=== PATIENT | male | born 1945 | race Caucasian/White ===

== ENCOUNTER 2019-10-24 13:40 | Emergency (ER) | payer MEDICARE, SELFPAY ==
--- NOTE | ~2019-10-24 | XR_ITS ---
EXAMINATION: XR finger 2nd RT min 2V DATE: 10/24/2019 16:30 INDICATION: Right hand second digit injury. TECHNIQUE: 4 views of right hand second digit were obtained. COMPARISON: None. FINDINGS: There is a comminuted fracture of tuft of second distal phalanx. There is mild osteoarthrit is of second distal interphalangeal joint. There is a soft tissue laceration of the distal second dig it. IMPRESSION: 1. Open comminuted fracture of tuft of second distal phalanx. Reviewed, dictated and finalized at location A.
[2019-10-24 14:27] VITALS: BP 155/84; PULSE 71; RESP 20; TEMP 36.6; O2SAT 100
--- NOTE | 2019-10-24 16:00 | ED.WOUNDLAC ---
HPI - Wound/Laceration General Chief Complaint: Wound/Laceration Stated Complaint: laceration finger Time Seen by Provider: 10/24/19 15:26 Source: patient Mode of arrival: ambulatory Limitations: no limitations History of Present Illness HPI narrative: This is a 74-year-old male that presents the emergency department for laceration to right index finger sustained just prior to arrival. Reports he sustained a laceration by a table saw. Reports he is up-to-date on tetanus. Denies decreased range of motion or numbness. Related Data Allergies Allergy/AdvReac Type Severity Reaction Status Date / Time No Known Allergies Allergy Verified 10/24/19 15:13 Review of Systems Review of Systems: Narrative: CONSTITUTIONAL: Denies fever SKIN: Reports laceration MUSCULOSKELETAL: Denies joint pain, or myalgia. NEUROLOGIC: Denies numbness All systems reviewed & are unremarkable except as noted in HPI and below PMFSH Past Medical History Medical History (Updated 10/24/19 @ 18:56 by Rea French PA-C) History of hypertension History of restless legs syndrome Exam Narrative: Exam Narrative: GENERAL: Well-appearing, well-nourished, and in no acute distress. HEAD: Normocephalic, atraumatic. EYES: EOMI. EXTREMITIES: Normal range of motion. No edema. Right second finger with complex/regular laceration of the distal phalanx that involves the nail. Normal sensation SKIN: Warm, dry, no rash. NEURO: No focal deficits. Alert and oriented x3. PSYCH: Normal mood and affect Course Consultations Consultation #1: Spoke with Dr. Hadley about patient and work-up who will follow-up in clinic Date: 10/24/19 Time: 18:52 Vital Signs Vital signs: Vital Signs Temperature 97.8 F 10/24/19 14:27 Pulse Rate 71 10/24/19 14:27 Respiratory Rate 20 10/24/19 14:27 Blood Pressure 155/84 H 10/24/19 14:27 Pulse Oximetry 100 10/24/19 14:27 Temperature 97.8 F 10/24/19 14:27 Pulse Rate 75 10/24/19 17:15 Respiratory Rate 16 10/24/19 17:15 Blood Pressure 138/75 10/24/19 17:15 Pulse Oximetry 98 10/24/19 17:15 Procedures Laceration Laceration 1: Date: 10/24/19 Time: 18:52 Site: hand Side (If applicable): right Size (cm): 2 Description: irregular Depth: [id number] (open fracture) Local Anesthetic: lidocaine 1% Amount of anesthesia used (mL): 4 Pre-repair: irrigated extensively ====== Skin Level ====== Skin layer closed with: nylon Size (cm): 5-0 Number of sutures: 2 Technique: simple, interrupted and horizontal mattress ====== Subcutaneous Layer ====== ====== Muscle Layer ====== ====== Tendon Layer ====== MDM - Wound/Laceration MDM Narrative Medical decision making narrative: Patient presents to the emergency department for complicated laceration of the right second finger. X-ray shows a comminuted fracture of the tuft, which makes this an open fracture. Patient is up-to-date on tetanus. Given dose of IM Ancef in the ED. Wound was thoroughly irrigated. I did approximate some of the tissue that I was able to with sutures. Patient was bandaged. He will follow-up with Dr. Hadley in clinic. He was given warnings to return to the ER Imaging Data Radiologist's impression: ITS Impressions Finger X-Ray 10/24/19 16:30 IMPRESSION: 1. Open comminuted fracture of tuft of second distal phalanx. Critical Care Time Critical Care Time Critical Care Time: No Discharge Plan Discharge Clinical Impression: Open fracture of distal phalanx of right index finger Qualifiers: Encounter type: initial encounter Fracture alignment: displaced Qualified Code(s): S62.630B - Displaced fracture of distal phalanx of right index finger, initial encounter for open fracture Patient Disposition: Home, Self-Care Condition: Stable Instructions: Antibiotic Form, Care For Your Stitches (ED), Lac
--- NOTE | 2019-10-24 16:20 | PC.NURSE ---
LACERATION TRAY SET UP AT BEDSIDE FOR FRANCISCO PADILLA.
[2019-10-24] MEDS: ceFAZolin SODIUM 1 GM VIAL IM (16:55)
[2019-10-24 17:15] VITALS: BP 138/75; PULSE 75; RESP 16; O2SAT 98
[2019-10-24 19:09] VITALS: BP 138/75; PULSE 75; RESP 18; O2SAT 100
== END 2019-10-24 19:10 | disposition home or self-care (01) ==
PROVIDERS: Emergency Provider Emergency Medicine; PCP Internal Medicine
DX: S62.630A Displaced fracture of distal phalanx of right index finger, initial encounter for closed fracture (principal); W27.0XXA Contact with workbench tool, initial encounter; I10 Essential (primary) hypertension; G25.81 Restless legs syndrome
CPT/HCPCS: 12001; 73140; 96372; 99283; J0690

== ENCOUNTER → 2020-06-19 11:29 | Outpatient (CLI) | payer MEDICARE, SELFPAY ==
--- NOTE | ~2020-06-19 | XR_ITS ---
EXAMINATION: XR shoulder RT min 2V DATE: 06/19/2020 12:19 INDICATION: Chronic right shoulder pain. TECHNIQUE: AP internally and externally rotated, AP oblique externally rotated and axillary views of the right shoulder were obtained. COMPARISON: None FINDINGS: Normal alignment. No fracture. Mild acromioclavicular osteoarthritis.Glenoid humeral joint space peg ears normal. Subtle chondrocalcinosis at the posterior superior glenoid labrum. Visualized portions o f the lungs are clear. Soft tissues are unremarkable. IMPRESSION: 1. Mild acromioclavicular osteoarthritis. 2. Mild chondrocalcinosis at the posterior superior glenoid labrum with normal glenohumeral joint spa ce. Reviewed, dictated and finalized at location A. IMPRESSION: 1. Mild acromioclavicular osteoarthritis. 2. Mild chondrocalcinosis at the posterior superior glenoid labrum with normal glenohumeral joint space.
== END ==
PROVIDERS: PCP Internal Medicine; Visit Provider Internal Medicine
DX: M19.011 Primary osteoarthritis, right shoulder (principal)
CPT/HCPCS: 73030

== ENCOUNTER → 2020-08-15 09:29 | Outpatient (CLI) | payer MEDICARE, SELFPAY ==
--- NOTE | ~2020-08-15 | XR_ITS ---
XR wrist LT min 3V DATE: 08/15/2020 10:10 INDICATION: Left hand and wrist pain TECHNIQUE: 4 views COMPARISON: None FINDINGS: There is widening of the scapholunate joint. There is chondrocalcinosis at the wrist joint and triangular cartilage. No fracture or dislocation, periosteal reaction or bone destruction. IMPRESSION: Scapholunate dissociation Chondrocalcinosis at the wrist joint and triangular cartilage Reviewed, dictated and finalized at location A.
--- NOTE | ~2020-08-15 | XR_ITS ---
XR hand LT min 3V DATE: 08/15/2020 10:10 INDICATION: Left hand pain TECHNIQUE: 3 views COMPARISON: None FINDINGS: There is polyarticular osteoarthritis involving multiple joints including first metacarpoph alangeal and interphalangeal joints, multiple additional interphalangeal joints. No erosive change is evident. No fracture or dislocation, periosteal reaction or bone destruction. Chondrocalcinosis at the triangular cartilage. IMPRESSION: Polyarticular osteoarthritis Reviewed, dictated and finalized at location A.
== END ==
PROVIDERS: PCP Internal Medicine; Visit Provider Internal Medicine
DX: M19.042 Primary osteoarthritis, left hand (principal)
CPT/HCPCS: 73110; 73130

== ENCOUNTER 2023-01-08 14:34 | Emergency (ER) | payer MEDICARE, SELFPAY ==
--- NOTE | ~2023-01-08 | XR_ITS ---
EXAMINATION: XR foot LT min 3V DATE: 01/08/2023 15:27 INDICATION: Left foot swelling. TECHNIQUE: 4 views of left foot were obtained. COMPARISON: None. FINDINGS: Bone alignment is normal. No fracture. There is mild osteoarthritis of first metatarsophala ngeal joint, second distal interphalangeal joint, and some of the midfoot joints. There is an entheso phyte at plantar aspect of calcaneal tuberosity. IMPRESSION: 1. Mild polyarticular osteoarthritis. Reviewed, dictated and finalized at location A. ENT SUPPORT SPECIALIST
[2023-01-08 14:50] VITALS: BP 153/79; PULSE 75; RESP 16; TEMP 36.5; O2SAT 100
--- NOTE | 2023-01-08 14:54 | ED.GENADULT ---
HPI - General Adult General Chief complaint: Extremity Problem,Nontraumatic Stated complaint: Swollen foot Time Seen by Provider: 01/08/23 14:56 Source: patient, RN notes reviewed and old records reviewed Mode of arrival: ambulatory Limitations: no limitations History of Present Illness HPI narrative: 77-year-old male presents to the [facility] with complaints of swollen left foot. States it has been going on for couple of weeks. 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 Has a history of similar flares whenever he does a lot of [employer] work. Did do a round of steroids, was given allopurinol but states it did nothing for him so he stopped taking Started treatment for gout on December 25 Was given steroids on December 27. Has an appointment set up with a hanging flags decorator for 16 January Related Data Home Medications Medication Instructions Recorded Confirmed hydrochlorothiazide 12.5 mg tablet 12.5 mg PO DAILY 01/08/23 01/08/23 lisinopril 20 mg tablet 20 mg PO DAILY 01/08/23 01/08/23 ropinirole 0.5 mg tablet 0.5 mg PO DAILY 01/08/23 01/08/23 Allergies Allergy/AdvReac Type Severity Reaction Status Date / Time No Known Allergies Allergy Verified 01/08/23 14:44 Review of Systems Review of Systems: All systems reviewed & are unremarkable except as noted in HPI and below Constitutional: Constitutional: Reports no additional constitutional complaints Eyes: Eyes: Reports no additional eye complaints ENT: Reports system reviewed and no additional complaints, except as documented Cardiovascular: Cardiovascular: Reports no additional cardiovascular complaints, Denies chest pain and Denies dyspnea Respiratory: Respiratory: Reports no additional respiratory complaints, Denies chest congestion, Denies cough and Denies dyspnea Gastrointestinal: Gastrointestinal: Reports no additional gastrointestinal complaints, Denies abdominal pain, Denies nausea and Denies vomiting Musculoskeletal: Musculoskeletal: Reports as per HPI Integumentary/Breasts: Skin/Breast: Reports system reviewed and no additional complaints, except as docu Neurologic: Reports system reviewed and no additional complaints, except as documented Psychiatric: Psychiatric: Reports no additional psychiatric complaints Allergic/Immunologic: Allergic/Immunologic: Reports no additional allergic/immunologic complaints PMFSH Past Medical History Medical History History of hypertension History of restless legs syndrome Comments At the time of my signature, I reviewed and agree with the nursing past medical, surgical, social, and family history. There is no relevant family history pertinent to the patient complaint. Exam Const: General: cooperative, healthy appearing, comfortable, no acute distress, well developed, alert and well nourished Nutritional Appearance: well nourished Orientation/consciousness: patient oriented x3 Limitations: no limitations HENMT: Head: normal to inspection Ears: hearing grossly normal bilaterally and external ears normal Face/Nose/Sinus: Normal external nose present, Normal nares present, Normal nasal mucous membranes and turbinates present, normal facial exam and face symmetric Face and sinus: normal facial exam and face symmetric Eyes: General: appearance normal, both eyes and all related structures Alignment and Position: alignment normal Periorbital: periorbital findings normal Pupils: Equal, round and reactive pupils present EOM: EOMs intact bilaterally Neck: Neck: normal visual inspection, full ROM, no lymphadenopathy and no meningeal signs Chest: Chest palpation & inspection: normal inspection of the chest Resp: Effort & Inspection: normal respiratory effort and able to speak in complete sentences Cardio: Rate: regular rate Rhythm: regular rhythm Back/Spine/Pelvis: Cervical Spine: cervical ROM normal Skin: General skin exam
== END 2023-01-08 15:56 | disposition home or self-care (01) ==
PROVIDERS: Emergency Provider Nurse Practitioner; PCP Internal Medicine
DX: M19.072 Primary osteoarthritis, left ankle and foot (principal); R60.9 Edema, unspecified; I10 Essential (primary) hypertension; G25.81 Restless legs syndrome
CPT/HCPCS: 73630; 99203; G0463

== ENCOUNTER 2023-08-16 14:44 | Emergency (ER) | payer MEDICARE, SELFPAY ==
[2023-08-16 14:48] VITALS: BP 136/84; PULSE 84; RESP 16; TEMP 36.8; O2SAT 98
--- NOTE | 2023-08-16 16:18 | ED.GENADULT ---
[facility] - General Adult General Chief complaint: Wound/Laceration Stated complaint: finger laceration Time Seen by Provider: 08/16/23 16:13 Source: patient Mode of arrival: ambulatory Limitations: no limitations History of Present Illness HPI narrative: This is a 78-year-old male with PMH of HTN, restless leg presents to the ED with chief complaint of laceration injury that occurred just prior to arrival. Patient was working with a chainsaw today he was cleaning and when this happened. The chainsaw was not running. Reports that the equipment slipped and resulted in a laceration to the left thumb a and left index finger. He does state that there was some nail bed damage to the left thumb. Tdap UTD denies numbness, weakness, decreased range of motion. Denies any further sites of pain or injury. Related Data Home Medications Medication Instructions Recorded Confirmed hydrochlorothiazide 12.5 mg tablet 12.5 mg PO DAILY 01/08/23 01/08/23 lisinopril 20 mg tablet 20 mg PO DAILY 01/08/23 01/08/23 ropinirole 0.5 mg tablet 0.5 mg PO DAILY 01/08/23 01/08/23 Allergies Allergy/AdvReac Type Severity Reaction Status Date / Time No Known Allergies Allergy Verified 08/16/23 16:13 Review of Systems Review of Systems: All systems as dictated in [facility] Past Medical History Medical History History of hypertension History of restless legs syndrome Exam Narrative: GENERAL: Well-appearing, well-nourished, and in no acute distress. HEAD: Normocephalic, atraumatic. MSK: Normal range of motion. No edema. SKIN: [place] shaped 2.5 cm laceration to the dorsum of the left index finger . Bleeding controlled. There is an irregular avulsion to the ulnar side of the left distal thumb involving the proximal nail. No subungual hematoma. Still oozing blood. NEURO: Alert and oriented x4. No focal deficits. PSYCH: Normal mood and affect. Course Vital Signs Vital signs: Vital Signs Temperature 98.2 F 08/16/23 14:48 Pulse Rate 84 08/16/23 14:48 Respiratory Rate 16 08/16/23 14:48 Blood Pressure 136/84 08/16/23 14:48 Pulse Oximetry 98 08/16/23 14:48 Temperature 98.2 F 08/16/23 14:48 Pulse Rate 84 08/16/23 14:48 Respiratory Rate 16 08/16/23 14:48 Blood Pressure 136/84 08/16/23 14:48 Pulse Oximetry 98 08/16/23 14:48 Procedures Laceration Laceration 1: Date: 08/16/23 Time: 17:11 Site: hand Side (If applicable): left Size (cm): 2.5 Description: linear (curved) Depth: simple, single layer Local Anesthetic: lidocaine 1% Amount of anesthesia used (mL): 2 Pre-repair: wound explored ====== Skin Level ====== Skin layer closed with: nylon Size (cm): 5-0 Number of sutures: 5 Technique: simple, interrupted ====== Subcutaneous Layer ====== ====== Muscle Layer ====== ====== Tendon Layer ====== Medical Decision Making [facility] Narrative Medical decision making narrative: This is a 78-year-old male who presents to the ED with chief complaint of a laceration injury to the left thumb and index finger. vitals are normal. There is an oozing avulsion injury to the left thumb involving the nail. Most of the nail is still intact. There is also a 2.5 cm curvilinear laceration to the dorsum of the left index finger. The wounds were well cleansed and irrigated here. Surgicel and Kerlix dressing for the oozing avulsion injury. The index finger was closed primarily with nylon sutures. Laceration instructions given. Due to the incident involving chainsaw outdoors, will cover with short course of antibiotics to prevent infection. Referral for plastic surgery for the thumbnail injury Pt will be discharged in stable condition. Return precautions given and supportive measures discussed. Pt is understanding and ag
--- NOTE | 2023-08-16 17:25 | PC.NURSE ---
Tetanus shot not given due to pt had one 4 years ago.
[2023-08-16 17:26] VITALS: BP 143/79; PULSE 61; RESP 18; O2SAT 100
== END 2023-08-16 17:27 | disposition home or self-care (01) ==
PROVIDERS: Emergency Provider Physician Assistant; PCP Internal Medicine
DX: S61.112A Laceration without foreign body of left thumb with damage to nail, initial encounter (principal); S61.211A Laceration without foreign body of left index finger without damage to nail, initial encounter; I10 Essential (primary) hypertension; G25.81 Restless legs syndrome; Z79.899 Other long term (current) drug therapy; W29.3XXA Contact with powered garden and outdoor hand tools and machinery, initial encounter
CPT/HCPCS: 12001; 90715; 99283